=== PATIENT | female | born 1950 | race Caucasian/White ===

== ENCOUNTER 2019-05-12 06:35 | Day surgery (SDC) | payer OTHER ==
--- NOTE | 2019-05-11 12:13 | HP ---
CHIEF COMPLAINT: Major Depressive Disorder/ANXIETY PCP: Dr. Refugio Sierra, [place] Primary Psychiatrist: Claus Marcos HISTORY OF PRESENT ILLNESS: 69 year-old female with a PMH significant for sleep apnea, colitis, and major depressive disorder. Patient has been psych hospitalized three times, last time 4 years ago. She presents today for her first ECT session. 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 [employer] Smoking: former, quit 1970s Alcohol: no Drugs: no Allergies Penicillins Allergy (Severe, Verified 05/07/19 11:14) Rash Family history: Father 99 with no reported medical problems; mother 83 unknown causes HOME MEDICATIONS: Home Medications Medication Instructions Recorded Cholecalciferol (Vitamin D3) 50,000 unit PO ASDIR 05/07/19 [D3-50] Clonazepam [Klonopin] 1 mg PO BID 05/07/19 Mercaptopurine [Purinethol -] 50 mg PO HS 05/07/19 Quetiapine Fumarate [Seroquel -] 25 mg PO HS 05/07/19 Simvastatin 20 mg PO HS 05/07/19 REVIEW OF SYSTEMS CONSTITUTIONAL: Absent: fever, chills, diaphoresis, generalized weakness, malaise, loss of appetite, weight change HEENT: Absent: rhinorrhea, nasal congestion, throat pain, throat swelling, difficulty swallowing, mouth swelling, ear pain, eye pain, visual changes CARDIOVASCULAR: Absent: chest pain, syncope, palpitations, irregular heart rate, lightheadedness , peripheral edema RESPIRATORY: Absent: cough, shortness of breath, dyspnea with exertion, orthopnea, wheezing, stridor, hemoptysis GASTROINTESTINAL: Absent: abdominal pain, abdominal distension, nausea, vomiting, diarrhea, constipation, melena, hematochezia GENITOURINARY: Absent: dysuria, frequency, urgency, hesitancy, hematuria, flank pain, genital pain MUSCULOSKELETAL: Absent: myalgia, arthralgia, joint swelling, back pain, neck pain SKIN: Absent: rash, itching, pallor HEMATOLOGIC/IMMUNOLOGIC: Absent: easy bleeding, easy bruising, lymphadenopathy, frequent infections ENDOCRINE: Absent: unexplained weight gain, unexplained weight loss, heat intolerance, cold intolerance NEUROLOGIC: Absent: headache, focal weakness or paresthesias, dizziness, unsteady gait, seizure, mental status changes, bladder or bowel incontinence PHYSICAL EXAMINATION Vital Signs Temperature 98.1 F 05/12/19 07:14 Pulse Rate 87 05/12/19 07:14 Respiratory Rate 18 05/12/19 07:14 Blood Pressure 138/79 05/12/19 07:14 O2 Sat by Pulse Oximetry (%) 97 05/12/19 07:14 GENERAL: Awake, alert, and fully oriented, in no acute distress. HEAD: Normal with no signs of trauma. EYES: Pupils equal, round and reactive to light, sclera anicteric, conjunctiva clear. LUNGS: Breath sounds equal, clear to auscultation bilaterally. No wheezes, and no crackles. No accessory muscle use. HEART: Regular rate and rhythm, normal S1 and S2 ABDOMEN: Soft, nontender, not distended MUSCULOSKELETAL: Normal range of motion at all joints. No bony deformities or tenderness. No CVA tenderness. UPPER EXTREMITIES: 2+ pulses, warm, well-perfused. No cyanosis. No clubbing. No peripheral edema. LOWER EXTREMITIES: 2+ pulses, warm, well-perfused. No calf tenderness. No peripheral edema. NEUROLOGICAL: Cranial nerves II-XII intact. Normal speech. ASSESSMENT/PLAN: 69 year-old female with a PMH significant for sleep apnea, colitis, and major depressive disorder. She presents today for ECT. Cardiac --no cardiac history --Revised Cardiac Risk Index for Pre-Operative Risk: 0 points, 0.4% risk of major cardiac event Pulmonary --no pulmonary history Neurological --no neurological or neurosurgical history; no history of trauma Anesthesia --no reported problems with anesthesia ECT is a low risk procedure. The relative benefits of the planned procedure outweigh the relative risks for this patient at this time. Visit type - Emergency Visit Emergency Visit: No - New Patient This patient is new to me today: Yes Date on this admission: 05/12/19 - Critical Care Critical Care patient: No
[2019-05-12] MEDS ORDERED: oxyCODONE HCL 5 MG TABLET PO PRN (06:46)
[2019-05-12] MEDS ORDERED: ACETAMINOPHEN 325 MG TABLET (FP) PO PRN (06:46)
[2019-05-12 07:18] VITALS: TEMP 98.1
[2019-05-12] MEDS ORDERED: KETAMINE HCL 500 MG/10 ML VIAL ONE (08:02)
[2019-05-12 09:21] VITALS: BP 122/66; PULSE 79
[2019-05-13 06:37] VITALS: BMI 27.9
== END 2019-05-12 09:30 | disposition home or self-care (01) ==
LOC: FECT 06:35
PROVIDERS: ATTEND Psychiatry & Neurology Psychiatry
PROC: GZB4ZZZ Other Electroconvulsive Therapy (ICD-10-PCS; principal; 2019-05-12 07:45)
DX: F33.2 Major depressive disorder, recurrent severe without psychotic features (principal)
CPT/HCPCS: 90870; 94760

== ENCOUNTER 2019-05-13 05:44 | Day surgery (SDC) | payer OTHER ==
[2019-05-13 06:36] VITALS: BMI 27.9
[2019-05-13] MEDS ORDERED: KETAMINE HCL 500 MG/10 ML VIAL ONE (07:03)
[2019-05-13] MEDS ORDERED: ACETAMINOPHEN 325 MG TABLET (FP) PO PRN (07:28)
[2019-05-13] MEDS ORDERED: oxyCODONE HCL 5 MG TABLET PO PRN (07:28)
[2019-05-13 08:20] VITALS: TEMP 98.8
[2019-05-13 08:35] VITALS: BP 125/80; PULSE 82
== END 2019-05-13 08:40 | disposition home or self-care (01) ==
LOC: FECT 05:44
PROVIDERS: ATTEND Psychiatry & Neurology Psychiatry
PROC: GZB4ZZZ Other Electroconvulsive Therapy (ICD-10-PCS; principal; 2019-05-13 07:00)
DX: F32.9 Major depressive disorder, single episode, unspecified (principal)
CPT/HCPCS: 90870; 94760

== ENCOUNTER 2019-05-18 06:08 | Day surgery (SDC) | payer OTHER ==
[2019-05-14 08:43] VITALS: BMI 27.9
[2019-05-18] MEDS ORDERED: KETAMINE HCL 500 MG/10 ML VIAL ONE (07:11)
[2019-05-18 08:42] VITALS: TEMP 97.7
[2019-05-18 09:20] VITALS: BP 126/72; PULSE 81
== END 2019-05-18 09:22 | disposition home or self-care (01) ==
LOC: FECT 06:08
PROVIDERS: ATTEND Psychiatry & Neurology Psychiatry
PROC: GZB4ZZZ Other Electroconvulsive Therapy (ICD-10-PCS; principal; 2019-05-18 07:15)
DX: F33.2 Major depressive disorder, recurrent severe without psychotic features (principal)
CPT/HCPCS: 90870; 94760

== ENCOUNTER 2019-05-20 05:42 | Day surgery (SDC) | payer OTHER ==
[2019-05-14 08:48] VITALS: BMI 27.9
[2019-05-20] MEDS ORDERED: KETAMINE HCL 500 MG/10 ML VIAL ONE (06:55)
[2019-05-20 08:19] VITALS: TEMP 98
[2019-05-20 08:54] VITALS: BP 134/80; PULSE 80
== END 2019-05-20 08:30 | disposition home or self-care (01) ==
LOC: FECT 05:42
PROVIDERS: ATTEND Psychiatry & Neurology Psychiatry
PROC: GZB4ZZZ Other Electroconvulsive Therapy (ICD-10-PCS; principal; 2019-05-20 07:00)
DX: F32.9 Major depressive disorder, single episode, unspecified (principal)
CPT/HCPCS: 90870; 94760

== ENCOUNTER 2019-05-22 05:44 | Day surgery (SDC) | payer OTHER ==
[2019-05-14 09:01] VITALS: BMI 27.9
[2019-05-22] MEDS ORDERED: KETAMINE HCL 500 MG/10 ML VIAL ONE (06:56)
[2019-05-22] MEDS ORDERED: ACETAMINOPHEN 325 MG TABLET (FP) PO PRN (07:36)
[2019-05-22] MEDS ORDERED: PROMETHAZINE HCL 25 MG/1 ML VIAL IVPUSH PRN (07:36)
[2019-05-22] MEDS ORDERED: ONDANSETRON 4 MG/2 ML VIAL IVPUSH PRN (07:36)
[2019-05-22] MEDS ORDERED: LACTATED RINGERS SOLUTION 1,000 ML IV SCH (07:45)
[2019-05-22 08:01] VITALS: TEMP 98.2
[2019-05-22 08:58] VITALS: BP 127/78; PULSE 81
== END 2019-05-22 08:30 | disposition home or self-care (01) ==
LOC: FECT 05:44
PROVIDERS: ATTEND Psychiatry & Neurology Psychiatry
PROC: GZB4ZZZ Other Electroconvulsive Therapy (ICD-10-PCS; principal; 2019-05-22 07:00)
DX: F32.9 Major depressive disorder, single episode, unspecified (principal)
CPT/HCPCS: 90870; 94760

== ENCOUNTER 2019-05-25 05:36 | Day surgery (SDC) | payer OTHER ==
[2019-05-14 09:17] VITALS: BMI 27.9
[2019-05-25] MEDS ORDERED: KETAMINE HCL 500 MG/10 ML VIAL ONE (07:23)
[2019-05-25 08:35] VITALS: TEMP 98.4
[2019-05-25 09:19] VITALS: BP 138/84; PULSE 76
== END 2019-05-25 09:22 | disposition home or self-care (01) ==
LOC: FECT 05:36
PROVIDERS: ATTEND Psychiatry & Neurology Psychiatry
PROC: GZB4ZZZ Other Electroconvulsive Therapy (ICD-10-PCS; principal; 2019-05-25 07:00)
DX: F33.2 Major depressive disorder, recurrent severe without psychotic features (principal)
CPT/HCPCS: 90870; 94760

== ENCOUNTER 2019-05-27 05:44 | Day surgery (SDC) | payer OTHER ==
[2019-05-14 11:45] VITALS: BMI 27.9
[2019-05-27] MEDS ORDERED: KETAMINE HCL 500 MG/10 ML VIAL ONE (06:49)
[2019-05-27 08:05] VITALS: TEMP 98.4
[2019-05-27 08:30] VITALS: BP 133/63; PULSE 81
== END 2019-05-27 08:30 | disposition home or self-care (01) ==
LOC: FECT 05:44
PROVIDERS: ATTEND Psychiatry & Neurology Psychiatry
PROC: GZB4ZZZ Other Electroconvulsive Therapy (ICD-10-PCS; principal; 2019-05-27 07:00)
DX: F32.9 Major depressive disorder, single episode, unspecified (principal)
CPT/HCPCS: 90870; 94760

== ENCOUNTER 2019-05-29 05:36 | Day surgery (SDC) | payer OTHER ==
[2019-05-14 12:08] VITALS: BMI 27.9
[2019-05-29 06:57] VITALS: TEMP 98.2
[2019-05-29] MEDS ORDERED: KETAMINE HCL 500 MG/10 ML VIAL ONE (07:27)
[2019-05-29 08:39] VITALS: PULSE 78
[2019-05-29 09:08] VITALS: BP 124/71
== END 2019-05-29 08:55 | disposition home or self-care (01) ==
LOC: FECT 05:36
PROVIDERS: ATTEND Psychiatry & Neurology Psychiatry
PROC: GZB4ZZZ Other Electroconvulsive Therapy (ICD-10-PCS; principal; 2019-05-29 07:00)
DX: F33.2 Major depressive disorder, recurrent severe without psychotic features (principal)
CPT/HCPCS: 90870; 94760

== ENCOUNTER 2019-06-01 05:40 | Day surgery (SDC) | payer OTHER ==
[2019-06-01 06:54] VITALS: BMI 27.9
[2019-06-01] MEDS ORDERED: KETAMINE HCL 500 MG/10 ML VIAL ONE (07:12)
[2019-06-01 08:22] VITALS: TEMP 97.9
[2019-06-01 08:58] VITALS: BP 126/64; PULSE 84
== END 2019-06-01 08:59 | disposition home or self-care (01) ==
LOC: FECT 05:40
PROVIDERS: ATTEND Psychiatry & Neurology Psychiatry
PROC: GZB4ZZZ Other Electroconvulsive Therapy (ICD-10-PCS; principal; 2019-06-01 07:00)
DX: F33.2 Major depressive disorder, recurrent severe without psychotic features (principal)
CPT/HCPCS: 90870; 94760

== ENCOUNTER 2019-06-03 05:43 | Day surgery (SDC) | payer OTHER ==
[2019-06-03 06:17] VITALS: BMI 27.9
[2019-06-03] MEDS ORDERED: KETAMINE HCL 500 MG/10 ML VIAL ONE (07:00)
[2019-06-03] MEDS ORDERED: ACETAMINOPHEN 325 MG TABLET (FP) PO PRN (07:58)
[2019-06-03] MEDS ORDERED: PROMETHAZINE HCL 25 MG/1 ML VIAL IVPUSH PRN (07:58)
[2019-06-03] MEDS ORDERED: LACTATED RINGERS SOLUTION 1,000 ML IV SCH (08:00)
[2019-06-03 08:14] VITALS: TEMP 97.9
[2019-06-03] MEDS ORDERED: MENTHOL/PHENOL 1 EACH UD MM PRN (08:17)
[2019-06-03 09:16] VITALS: BP 124/72; PULSE 86
== END 2019-06-03 09:00 | disposition home or self-care (01) ==
LOC: FECT 05:43
PROVIDERS: ATTEND Psychiatry & Neurology Psychiatry
PROC: GZB4ZZZ Other Electroconvulsive Therapy (ICD-10-PCS; principal; 2019-06-03 07:00)
DX: F32.9 Major depressive disorder, single episode, unspecified (principal)
CPT/HCPCS: 90870; 94760

== ENCOUNTER 2019-06-05 05:40 | Day surgery (SDC) | payer OTHER ==
[2019-06-05 06:36] VITALS: TEMP 98.4; BMI 27.9
[2019-06-05] MEDS ORDERED: KETAMINE HCL 500 MG/10 ML VIAL ONE (06:47)
[2019-06-05 07:50] VITALS: PULSE 78
[2019-06-05 09:02] VITALS: BP 130/84
== END 2019-06-05 08:30 | disposition home or self-care (01) ==
LOC: FECT 05:40
PROVIDERS: ATTEND Psychiatry & Neurology Psychiatry
PROC: GZB4ZZZ Other Electroconvulsive Therapy (ICD-10-PCS; principal; 2019-06-05 07:00)
DX: F32.9 Major depressive disorder, single episode, unspecified (principal)
CPT/HCPCS: 90870; 94760

== ENCOUNTER 2019-06-12 05:41 | Day surgery (SDC) | payer OTHER ==
[2019-06-12 06:21] VITALS: BMI 27.9
[2019-06-12] MEDS ORDERED: KETAMINE HCL 500 MG/10 ML VIAL ONE (06:57)
[2019-06-12 07:21] VITALS: TEMP 98.2
[2019-06-12] MEDS ORDERED: LACTATED RINGERS SOLUTION 1,000 ML IV SCH (08:00)
[2019-06-12 08:24] VITALS: BP 144/88; PULSE 87
--- NOTE | 2019-06-12 19:56 | HP ---
CHIEF COMPLAINT: Major Depressive Disorder/ANXIETY PCP: Dr. Refugio Sierra, [place] Primary Psychiatrist: Claus Marcos HISTORY OF PRESENT ILLNESS: 69 year-old female with a PMH significant for sleep apnea, colitis, and major depressive disorder. Patient has been psych hospitalized three times, last time 4 years ago. She presents today for her first ECT session. 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 [employer] Smoking: former, quit 1970s Alcohol: no Drugs: no Allergies Penicillins Allergy (Severe, Verified 05/07/19 11:14) Rash HOME MEDICATIONS: Home Medications Medication Instructions Recorded Cholecalciferol (Vitamin D3) 50,000 unit PO ASDIR 05/07/19 [D3-50] Clonazepam [Klonopin] 1 mg PO BID 05/07/19 Mercaptopurine [Purinethol -] 50 mg PO HS 05/07/19 Quetiapine Fumarate [Seroquel -] 25 mg PO HS 05/07/19 Simvastatin 20 mg PO HS 05/07/19 Nortriptyline HCl [Pamelor -] 20 mg PO HS 05/25/19 REVIEW OF SYSTEMS CONSTITUTIONAL: Absent: fever, chills, diaphoresis, generalized weakness, malaise, loss of appetite, weight change HEENT: Absent: rhinorrhea, nasal congestion, throat pain, throat swelling, difficulty swallowing, mouth swelling, ear pain, eye pain, visual changes CARDIOVASCULAR: Absent: chest pain, syncope, palpitations, irregular heart rate, lightheadedness , peripheral edema RESPIRATORY: Absent: cough, shortness of breath, dyspnea with exertion, orthopnea, wheezing, stridor, hemoptysis GASTROINTESTINAL: Absent: abdominal pain, abdominal distension, nausea, vomiting, diarrhea, constipation, melena, hematochezia GENITOURINARY: Absent: dysuria, frequency, urgency, hesitancy, hematuria, flank pain, genital pain MUSCULOSKELETAL: Absent: myalgia, arthralgia, joint swelling, back pain, neck pain SKIN: Absent: rash, itching, pallor HEMATOLOGIC/IMMUNOLOGIC: Absent: easy bleeding, easy bruising, lymphadenopathy, frequent infections ENDOCRINE: Absent: unexplained weight gain, unexplained weight loss, heat intolerance, cold intolerance NEUROLOGIC: Absent: headache, focal weakness or paresthesias, dizziness, unsteady gait, seizure, mental status changes, bladder or bowel incontinence PHYSICAL EXAMINATION Vital Signs - 24 hr 06/12/19 06/12/19 06/12/19 06:16 07:19 07:25 Temperature 98.5 F 98.2 F Pulse Rate 113 H 78 84 Respiratory 18 14 18 Rate Blood Pressure 150/71 109/60 126/67 O2 Sat by Pulse 95 99 97 Oximetry (%) 06/12/19 06/12/19 06/12/19 07:30 07:35 07:48 Temperature 98.2 F Pulse Rate 92 H 91 H 91 H Respiratory 18 19 19 Rate Blood Pressure 138/75 145/76 145/76 O2 Sat by Pulse 97 93 L 93 L Oximetry (%) 06/12/19 06/12/19 06/12/19 07:50 08:20 08:25 Temperature 98.2 F 98.2 F 98.2 F Pulse Rate 85 87 87 Respiratory 18 18 18 Rate Blood Pressure 147/90 144/88 144/88 O2 Sat by Pulse 94 L 96 Oximetry (%) GENERAL: Awake, alert, and fully oriented, in no acute distress. HEAD: Normal with no signs of trauma. EYES: Pupils equal, round and reactive to light, sclera anicteric, conjunctiva clear. LUNGS: Breath sounds equal, clear to auscultation bilaterally. No wheezes, and no crackles. No accessory muscle use. HEART: Regular rate and rhythm, normal S1 and S2 ABDOMEN: Soft, nontender, not distended MUSCULOSKELETAL: Normal range of motion at all joints. No bony deformities or tenderness. No CVA tenderness. UPPER EXTREMITIES: 2+ pulses, warm, well-perfused. No cyanosis. No clubbing. No peripheral edema. LOWER EXTREMITIES: 2+ pulses, warm, well-perfused. No calf tenderness. No peripheral edema. NEUROLOGICAL: Cranial nerves II-XII intact. Normal speech. ASSESSMENT/PLAN: 69 year-old female with a PMH significant for sleep apnea, colitis, and major depressive disorder. She presents today for ECT. Cardiac --no cardiac history --Revised Cardiac Risk Index for Pre-Operative Risk: 0 points, 0.4% risk of major cardiac event Pulmonary --no pulmonary history Neurological --no neurological or neurosurgical history; no history of trauma Anesthesia --no reported problems with anesthesia ECT is a low risk procedure. The relative benefits of the planned procedure outweigh the relative risks for this patient at this time. Visit type - Emergency Visit Emergency Visit: No - New Patient This patient is new to me today: Yes Date on this admission: 06/15/19 - Critical Care Critical Care patient: No
== END 2019-06-12 08:25 | disposition home or self-care (01) ==
LOC: FECT 05:41
PROVIDERS: ATTEND Psychiatry & Neurology Psychiatry
PROC: GZB4ZZZ Other Electroconvulsive Therapy (ICD-10-PCS; principal; 2019-06-12 08:00)
DX: F33.2 Major depressive disorder, recurrent severe without psychotic features (principal)
CPT/HCPCS: 90870; 94760

== ENCOUNTER 2019-06-15 05:56 | Day surgery (SDC) | payer OTHER ==
[2019-06-15 06:25] VITALS: TEMP 98.5; BMI 27.9
[2019-06-15] MEDS ORDERED: KETAMINE HCL 500 MG/10 ML VIAL ONE (06:58)
[2019-06-15 08:34] VITALS: BP 139/79; PULSE 89
== END 2019-06-15 08:40 | disposition home or self-care (01) ==
LOC: FECT 05:56
PROVIDERS: ATTEND Psychiatry & Neurology Psychiatry
PROC: GZB4ZZZ Other Electroconvulsive Therapy (ICD-10-PCS; principal; 2019-06-15 07:45)
DX: F33.2 Major depressive disorder, recurrent severe without psychotic features (principal)
CPT/HCPCS: 90870; 94760

== ENCOUNTER 2019-06-18 05:46 | Day surgery (SDC) | payer OTHER ==
[2019-06-18 06:34] VITALS: TEMP 97.9; BMI 27.3
[2019-06-18] MEDS ORDERED: KETAMINE HCL 500 MG/10 ML VIAL ONE (06:52)
[2019-06-18 08:48] VITALS: BP 123/64; PULSE 79
== END 2019-06-18 08:50 | disposition home or self-care (01) ==
LOC: FECT 05:46
PROVIDERS: ATTEND Psychiatry & Neurology Psychiatry
PROC: GZB4ZZZ Other Electroconvulsive Therapy (ICD-10-PCS; principal; 2019-06-18 07:45)
DX: F32.9 Major depressive disorder, single episode, unspecified (principal)
CPT/HCPCS: 90870; 94760

== ENCOUNTER 2019-06-23 05:46 | Day surgery (SDC) | payer OTHER ==
[2019-06-23 06:17] VITALS: TEMP 98.6; BMI 27.3
[2019-06-23] MEDS ORDERED: KETAMINE HCL 500 MG/10 ML VIAL ONE (07:22)
[2019-06-23 09:05] VITALS: BP 138/72; PULSE 79
[2019-06-23] MEDS ORDERED: ACETAMINOPHEN 325 MG TABLET (FP) PO PRN (09:08)
== END 2019-06-23 09:08 | disposition home or self-care (01) ==
LOC: FECT 05:46
PROVIDERS: ATTEND Psychiatry & Neurology Psychiatry
PROC: GZB4ZZZ Other Electroconvulsive Therapy (ICD-10-PCS; principal; 2019-06-23 07:45)
DX: F32.9 Major depressive disorder, single episode, unspecified (principal)
CPT/HCPCS: 90870; 94760

== ENCOUNTER 2019-06-26 05:38 | Day surgery (SDC) | payer OTHER ==
[2019-06-19 11:31] VITALS: BMI 27.3
[2019-06-26 06:51] VITALS: TEMP 98.1
[2019-06-26] MEDS ORDERED: KETAMINE HCL 500 MG/10 ML VIAL ONE (07:24)
[2019-06-26 09:14] VITALS: BP 141/79; PULSE 79
== END 2019-06-26 09:00 | disposition home or self-care (01) ==
LOC: FECT 05:38
PROVIDERS: ATTEND Psychiatry & Neurology Psychiatry
PROC: GZB4ZZZ Other Electroconvulsive Therapy (ICD-10-PCS; principal; 2019-06-26 07:15)
DX: F33.2 Major depressive disorder, recurrent severe without psychotic features (principal)
CPT/HCPCS: 90870; 94760

== ENCOUNTER 2019-06-29 06:38 | Day surgery (SDC) | payer OTHER ==
[2019-06-29 06:54] VITALS: TEMP 98.5; BMI 27.3
[2019-06-29 08:48] VITALS: BP 148/87; PULSE 84
== END 2019-06-29 08:50 | disposition home or self-care (01) ==
LOC: FECT 06:38
PROVIDERS: ATTEND Psychiatry & Neurology Psychiatry
PROC: GZB4ZZZ Other Electroconvulsive Therapy (ICD-10-PCS; principal; 2019-06-29 08:00)
DX: F33.2 Major depressive disorder, recurrent severe without psychotic features (principal)
CPT/HCPCS: 90870; 94760

== ENCOUNTER 2019-07-01 05:58 | Day surgery (SDC) | payer OTHER ==
[2019-07-01 06:14] VITALS: TEMP 97.9; BMI 27.3
[2019-07-01] MEDS ORDERED: KETAMINE HCL 500 MG/10 ML VIAL ONE (08:52)
[2019-07-01 10:24] VITALS: BP 140/72; PULSE 89
== END 2019-07-01 10:15 | disposition home or self-care (01) ==
LOC: FECT 05:58
PROVIDERS: ATTEND Psychiatry & Neurology Psychiatry
PROC: GZB4ZZZ Other Electroconvulsive Therapy (ICD-10-PCS; principal; 2019-07-01 07:45)
DX: F33.2 Major depressive disorder, recurrent severe without psychotic features (principal)
CPT/HCPCS: 90870; 94760

== ENCOUNTER 2019-07-09 05:43 | Day surgery (SDC) | payer OTHER ==
[2019-07-09 06:37] VITALS: BMI 27.3
[2019-07-09] MEDS ORDERED: KETAMINE HCL 500 MG/10 ML VIAL ONE (06:57)
[2019-07-09 08:20] VITALS: TEMP 97.9
[2019-07-09 09:11] VITALS: BP 126/74; PULSE 84
[2019-07-09] MEDS ORDERED: ONDANSETRON 4 MG/2 ML VIAL IVPUSH PRN (11:13)
[2019-07-09] MEDS ORDERED: LACTATED RINGERS SOLUTION 1,000 ML IV SCH (11:15)
== END 2019-07-09 08:50 | disposition home or self-care (01) ==
LOC: FECT 05:43
PROVIDERS: ATTEND Psychiatry & Neurology Psychiatry
PROC: GZB4ZZZ Other Electroconvulsive Therapy (ICD-10-PCS; principal; 2019-07-09 07:15)
DX: F32.9 Major depressive disorder, single episode, unspecified (principal)
CPT/HCPCS: 90870; 94760

== ENCOUNTER 2019-07-13 05:42 | Day surgery (SDC) | payer OTHER ==
[2019-07-13 06:56] VITALS: BMI 27.3
[2019-07-13] MEDS ORDERED: ONDANSETRON 4 MG/2 ML VIAL IVPUSH PRN (06:56)
[2019-07-13] MEDS ORDERED: LACTATED RINGERS SOLUTION 1,000 ML IV SCH (07:00)
[2019-07-13] MEDS ORDERED: KETAMINE HCL 500 MG/10 ML VIAL ONE (07:16)
[2019-07-13 08:21] VITALS: TEMP 98.1
[2019-07-13 08:40] VITALS: BP 135/75; PULSE 84
--- NOTE | 2019-07-13 09:28 | HP ---
CHIEF COMPLAINT: Major Depressive Disorder/ANXIETY PCP: Dr. Refugio Sierra, [place] Primary Psychiatrist: Claus Marcos HISTORY OF PRESENT ILLNESS: 69 year-old female with a PMH significant for sleep apnea, colitis, and major depressive disorder. Patient has been psych hospitalized three times, last time 4 years ago. She presents today for her first ECT session. 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 [employer] Smoking: former, quit 1970s Alcohol: no Drugs: no Allergies Penicillins Allergy (Severe, Verified 06/19/19 11:27) Rash HOME MEDICATIONS: Home Medications Medication Instructions Recorded Cholecalciferol (Vitamin D3) 50,000 unit PO ASDIR 05/07/19 [D3-50] Clonazepam [Klonopin] 1 mg PO BID 05/07/19 Mercaptopurine [Purinethol -] 50 mg PO HS 05/07/19 Quetiapine Fumarate [Seroquel -] 25 mg PO HS 05/07/19 Simvastatin 20 mg PO HS 05/07/19 Nortriptyline HCl [Pamelor -] 20 mg PO HS 05/25/19 REVIEW OF SYSTEMS CONSTITUTIONAL: Absent: fever, chills, diaphoresis, generalized weakness, malaise, loss of appetite, weight change HEENT: Absent: rhinorrhea, nasal congestion, throat pain, throat swelling, difficulty swallowing, mouth swelling, ear pain, eye pain, visual changes CARDIOVASCULAR: Absent: chest pain, syncope, palpitations, irregular heart rate, lightheadedness , peripheral edema RESPIRATORY: Absent: cough, shortness of breath, dyspnea with exertion, orthopnea, wheezing, stridor, hemoptysis GASTROINTESTINAL: Absent: abdominal pain, abdominal distension, nausea, vomiting, diarrhea, constipation, melena, hematochezia GENITOURINARY: Absent: dysuria, frequency, urgency, hesitancy, hematuria, flank pain, genital pain MUSCULOSKELETAL: Absent: myalgia, arthralgia, joint swelling, back pain, neck pain SKIN: Absent: rash, itching, pallor HEMATOLOGIC/IMMUNOLOGIC: Absent: easy bleeding, easy bruising, lymphadenopathy, frequent infections ENDOCRINE: Absent: unexplained weight gain, unexplained weight loss, heat intolerance, cold intolerance NEUROLOGIC: Absent: headache, focal weakness or paresthesias, dizziness, unsteady gait, seizure, mental status changes, bladder or bowel incontinence PHYSICAL EXAMINATION Vital Signs - 24 hr 07/13/19 07/13/19 07/13/19 06:52 07:45 07:50 Temperature 98.3 F 98.5 F Pulse Rate 89 69 71 Respiratory 18 15 14 Rate Blood Pressure 141/76 95/53 L 109/54 L O2 Sat by Pulse 93 L 98 97 Oximetry (%) 07/13/19 07/13/19 07/13/19 07:55 08:00 08:05 Temperature Pulse Rate 78 79 78 Respiratory 17 18 15 Rate Blood Pressure 113/60 123/64 125/69 O2 Sat by Pulse 99 98 97 Oximetry (%) 07/13/19 07/13/19 07/13/19 08:10 08:40 08:50 Temperature 98.1 F 98.1 F 98.1 F Pulse Rate 79 84 84 Respiratory 18 18 18 Rate Blood Pressure 137/76 135/75 135/75 O2 Sat by Pulse 95 95 Oximetry (%) GENERAL: Awake, alert, and fully oriented, in no acute distress. HEAD: Normal with no signs of trauma. EYES: Pupils equal, round and reactive to light, sclera anicteric, conjunctiva clear. LUNGS: Breath sounds equal, clear to auscultation bilaterally. No wheezes, and no crackles. No accessory muscle use. HEART: Regular rate and rhythm, normal S1 and S2 ABDOMEN: Soft, nontender, not distended MUSCULOSKELETAL: Normal range of motion at all joints. No bony deformities or tenderness. No CVA tenderness. UPPER EXTREMITIES: 2+ pulses, warm, well-perfused. No cyanosis. No clubbing. No peripheral edema. LOWER EXTREMITIES: 2+ pulses, warm, well-perfused. No calf tenderness. No peripheral edema. NEUROLOGICAL: Cranial nerves II-XII intact. Normal speech. ASSESSMENT/PLAN: 69 year-old female with a PMH significant for sleep apnea, colitis, and major depressive disorder. She presents today for ECT. Cardiac --no cardiac history --Revised Cardiac Risk Index for Pre-Operative Risk: 0 points, 0.4% risk of major cardiac event Pulmonary --no pulmonary history Neurological --no neurological or neurosurgical history; no history of trauma Anesthesia --no reported problems with anesthesia ECT is a low risk procedure. The relative benefits of the planned procedure outweigh the relative risks for this patient at this time. Visit type - Emergency Visit Emergency Visit: No - New Patient This patient is new to me today: Yes Date on this admission: 07/13/19 - Critical Care Critical Care patient: No
== END 2019-07-13 08:50 | disposition home or self-care (01) ==
LOC: FECT 05:42
PROVIDERS: ATTEND Psychiatry & Neurology Psychiatry
PROC: GZB4ZZZ Other Electroconvulsive Therapy (ICD-10-PCS; principal; 2019-07-13 07:00)
DX: F32.9 Major depressive disorder, single episode, unspecified (principal)
CPT/HCPCS: 90870; 94760

== ENCOUNTER 2019-07-17 05:47 | Day surgery (SDC) | payer OTHER ==
[2019-07-17 06:55] VITALS: BMI 27.3
[2019-07-17] MEDS ORDERED: KETAMINE HCL 500 MG/10 ML VIAL ONE (07:32)
[2019-07-17 08:49] VITALS: BP 135/72; PULSE 79; TEMP 98
== END 2019-07-17 09:15 | disposition home or self-care (01) ==
LOC: FECT 05:47
PROVIDERS: ATTEND Psychiatry & Neurology Psychiatry
PROC: GZB4ZZZ Other Electroconvulsive Therapy (ICD-10-PCS; principal; 2019-07-17 07:00)
DX: F32.9 Major depressive disorder, single episode, unspecified (principal)
CPT/HCPCS: 90870; 94760

== ENCOUNTER 2019-07-20 05:51 | Day surgery (SDC) | payer OTHER ==
[2019-07-20 06:44] VITALS: BMI 27.3
[2019-07-20] MEDS ORDERED: LACTATED RINGERS SOLUTION 1,000 ML IV SCH (07:00)
[2019-07-20] MEDS ORDERED: KETAMINE HCL 500 MG/10 ML VIAL ONE (07:07)
[2019-07-20 09:01] VITALS: TEMP 98.1
[2019-07-20 09:04] VITALS: BP 128/65; PULSE 81
== END 2019-07-20 09:09 | disposition home or self-care (01) ==
LOC: FECT 05:51
PROVIDERS: ATTEND Psychiatry & Neurology Psychiatry
PROC: GZB4ZZZ Other Electroconvulsive Therapy (ICD-10-PCS; principal; 2019-07-20 07:30)
DX: F32.9 Major depressive disorder, single episode, unspecified (principal)
CPT/HCPCS: 90870; 94760

== ENCOUNTER 2019-07-23 06:02 | Day surgery (SDC) | payer OTHER ==
[2019-07-23 06:33] VITALS: BMI 27.3
[2019-07-23] MEDS ORDERED: KETAMINE HCL 500 MG/10 ML VIAL ONE (06:53)
[2019-07-23] MEDS ORDERED: LACTATED RINGERS SOLUTION 1,000 ML IV SCH (07:00)
[2019-07-23 08:24] VITALS: PULSE 76; TEMP 97.9
[2019-07-23 08:52] VITALS: BP 124/76
== END 2019-07-23 08:57 | disposition home or self-care (01) ==
LOC: FECT 06:02
PROVIDERS: ATTEND Psychiatry & Neurology Psychiatry
PROC: GZB4ZZZ Other Electroconvulsive Therapy (ICD-10-PCS; principal; 2019-07-23 07:45)
DX: F32.9 Major depressive disorder, single episode, unspecified (principal)
CPT/HCPCS: 90870; 94760

== ENCOUNTER 2019-07-27 05:49 | Day surgery (SDC) | payer OTHER ==
[2019-07-27] MEDS ORDERED: LACTATED RINGERS SOLUTION 1,000 ML IV SCH (07:00)
[2019-07-27 07:04] VITALS: BMI 24.7
[2019-07-27] MEDS ORDERED: KETAMINE HCL 500 MG/10 ML VIAL ONE (07:29)
[2019-07-27 08:49] VITALS: TEMP 98.4
[2019-07-27 10:24] VITALS: BP 143/66; PULSE 76
== END 2019-07-27 09:20 | disposition home or self-care (01) ==
LOC: FECT 05:49
PROVIDERS: ATTEND Psychiatry & Neurology Psychiatry
PROC: GZB4ZZZ Other Electroconvulsive Therapy (ICD-10-PCS; principal; 2019-07-27 08:45)
DX: F33.2 Major depressive disorder, recurrent severe without psychotic features (principal)
CPT/HCPCS: 90870; 94760

== ENCOUNTER 2019-08-03 05:49 | Day surgery (SDC) | payer OTHER ==
[2019-08-03 06:35] VITALS: BMI 24.7
[2019-08-03] MEDS ORDERED: KETAMINE HCL 500 MG/10 ML VIAL ONE (06:59)
[2019-08-03 08:23] VITALS: PULSE 80; TEMP 98.6
[2019-08-03 09:04] VITALS: BP 152/64
== END 2019-08-03 08:50 | disposition home or self-care (01) ==
LOC: FECT 05:49
PROVIDERS: ATTEND Psychiatry & Neurology Psychiatry
PROC: GZB4ZZZ Other Electroconvulsive Therapy (ICD-10-PCS; principal; 2019-08-03 07:00)
DX: F33.2 Major depressive disorder, recurrent severe without psychotic features (principal)
CPT/HCPCS: 90870; 94760